=== PATIENT | male | born 1995 | race Caucasian/White ===

== ENCOUNTER 2018-11-21 14:26 | Emergency (ER) | payer OTHER ==
[2018-11-21] MEDS ORDERED: HYDROmorphONE/DILAUDID 2 MG/ML INJ IVP ONE (15:11)
[2018-11-21] MEDS ORDERED: NS 1,000 ML IV ONE (15:11)
[2018-11-21] MEDS ORDERED: ONDANSETRON 4 MG/2 ML VIAL ONE (15:13)
--- NOTE | 2018-11-21 15:18 | EDPHY ---
H & P Stated Complaint: Fall/skateboard Time Seen by Provider: 11/21/18 14:59 HPI/ROS: CHIEF COMPLAINT: Left wrist pain HISTORY OF PRESENT ILLNESS: Patient is a 23-year-old man who was riding a skateboard on a ramp. He tried did drop into the ramp and fell immediately onto his outstretched left arm. He has severe the the pain. He denies other injuries. He denies head or neck injury. Normal pulses and sensation distally. He does have a small abrasion to the distal end of his left ulna but no open laceration. Severity: Severe Modifying factors: Worsened by movement REVIEW OF SYSTEMS: Constitutional: denies: chills, fever, recent illness, recent injury EENTM: denies: blurred vision, double vision, nose congestion Respiratory: denies: cough, shortness of breath Cardiac: denies: chest pain, irregular heart rate, lightheadedness, palpitations Gastrointestinal/Abdominal: denies: abdominal pain, diarrhea, nausea, vomiting, blood streaked stools Genitourinary: denies: dysuria, frequency, hematuria, pain Musculoskeletal: See HPI Skin: See HPI Neurological: denies: headache, numbness, paresthesia, tingling, dizziness, weakness Hematologic/Lymphatic: denies: blood clots, easy bleeding, easy bruising Immunologic/allergic: denies: HIV/AIDS, transplant 10 systems reviewed and negative except as noted EXAM: GENERAL: Well-appearing, well-nourished and in no acute distress. HEAD: Atraumatic, normocephalic. EYES: Pupils equal round and reactive to light, extraocular movements intact, sclera anicteric, conjunctiva are normal. ENT: TMs normal, nares patent, oropharynx clear without exudates. Moist mucous membranes. NECK: Normal range of motion, supple without lymphadenopathy or JVD. LUNGS: Breath sounds clear to auscultation bilaterally and equal. No wheezes rales or rhonchi. HEART: Regular rate and rhythm without murmurs, rubs or gallops. ABDOMEN: Soft, nontender, normoactive bowel sounds. No guarding, no rebound. No masses appreciated. BACK: No CVA tenderness, no spinal tenderness, step-offs or deformities EXTREMITIES: Significant pain left wrist with any type of movement. Deformity. Normal capillary refill and sensation distally. NEUROLOGICAL: Cranial nerves II through XII grossly intact. Normal speech, normal gait. 5/5 strength, normal movement in all extremities, normal sensation , normal reflexes PSYCH: Normal mood, normal affect. SKIN: The abrasion distal left ulna, no the puncture Source: Patient Exam Limitations: No limitations - Personal History Current Tetanus/Diphtheria Vaccine: Yes - Medical/Surgical History Hx Asthma: No Hx Chronic Respiratory Disease: No Hx Diabetes: No Hx Cardiac Disease: No Hx Renal Disease: No Hx Cirrhosis: No Hx Alcoholism: No Other PMH: Denies - Family History Significant Family History: No pertinent family hx - Social History Smoking Status: Current some day smoker Alcohol Use: None Constitutional: Initial Vital Signs Temperature (C) 36.6 C 11/21/18 14:29 Heart Rate 98 11/21/18 14:29 Respiratory Rate 18 11/21/18 14:29 Blood Pressure 139/98 H 11/21/18 14:29 O2 Sat (%) 97 11/21/18 14:29 O2 Delivery Mode [Post Room Air Procedure 3rd] O2 Delivery Mode [Post Non-Rebreather Mask Procedure 2nd] O2 Delivery Mode [Post Non-Rebreather Mask Procedure 1st] O2 Delivery Mode [Procedural Non-Rebreather Mask 3rd] O2 Delivery Mode [Procedural Non-Rebreather Mask 2nd] O2 Delivery Mode [Procedural Non-Rebreather Mask 1st] O2 Delivery Mode [.Immediate Non-Rebreather Mask Pre-Procedure] O2 Delivery Mode Room Air O2 (L/minute) [Post Procedure 15 2nd] O2 (L/minute) [Post Procedure 15 1st] O2 (L/minute) [Procedural 3rd] 15 O2 (L/minute) [Procedural 2nd] 15 O2 (L/minute) [Procedural 1st] 15 O2 (L/minute) [.Immediate Pre- 15 Procedure] O2 (L/minute) 2 Allergies/Adverse Reactions: No Known Allergies Allergy (Unverified 11/21/18 14:35) Home Medications: Medication Instructions Recorded oxyCODONE/APAP 5/325 [Percocet 1 - 2 tab PO Q4H PRN #20 tab 11/21/18 5/325 (*)] Medical Decision Making - Diagnostics Imaging Results: Imaging Impressions Wrist X-Ray 11/21/18 00:00 Impression: There has been some improvement in the transversely-oriented displaced radial diaphyseal fracture, compared to earlier this afternoon, however there is persistent volar/radial displacement, as above-detailed. Forearm X-Ray 11/21/18 14:36 Impression: 1. Transverse displaced distal left radial fracture. Wrist X-Ray 11/21/18 14:36 Impression: Transverse displaced distal left radial fracture. Imaging: Discussed imaging studies w/ house calls nurse practitioner Radiologist Procedures: Procedure: Procedural sedation. Indication: Fracture A pre-sedation evaluation was completed on the patient just prior to the procedure. Patient is an appropriate candidate for procedural sedation with a normal 3-3-2 rule assessment and a Mallampati airway score of class 1. The risks of the sedation were discussed including but not limited to dysrhythmia, need for airway intervention or general anesthesia, disability, ; and verbal consent obtained. A timeout was observed and patient's identity confirmed. The patient was sedated with ketamine and propofol. The patient was monitored with continuous pulse oximetry, capnography, and anodiser. There were no complications and no significant hypoxemia. I remained at the bedside for the sedation. The total time I spent in the procedural sedation was 30 min Orthopedic reduction left distal radius reduced with traction and direct pressure. Tolerated the procedure well. Procedure: Splint placement. A sugar-tong splint was applied. After application of the splint I returned and re-examined the patient. The splint was adequately immobilizing the joint and distal to the splint the patient's circulation and sensation was intact. ED Course/Re-evaluation: 3:15 p.m. I spoke with Dr. Babin who will evaluate the x-rays. The patient last ate at 10:00 a.m.. He has been drinking water as recently as an hour ago . For 5:20 p.m. The patient was sedated with procedural sedation and splint placed. C-arm was used. Good alignment initially but slipped somewhat during splint placement. He is recovering will follow up with Orthopedics on Friday. 6:00 p.m. The patient is doing well. He is still having pain. Will discharge with a prescription for Percocet. He is following up on Friday with Dr. Babin. Dr. Babin has reviewed the post reduction x-rays. Differential Diagnosis: Partial list of the Differential diagnosis considered include but were not limited to; radius fracture, ulnar dislocation, Colles fracture and although unlikely based on the history and physical exam, I also considered elbow injury , head injury, neck injury. I discussed these differential diagnoses and the plan with the patient as well as the usual and expected course. The patient understands that the diagnosis is provisional and that in medicine we are not always correct and that further workup is often warranted. Usual and customary warnings were given. All of the patient's questions were answered. The patient was instructed to return to the emergency department should the symptoms at all worsen or return, otherwise to followup with the physician as we discussed. - Data Points Laboratory Results: Laboratory Results 11/21/18 15:26 11/21/18 15:26 11/21/18 11/21/18 15:26 15:26 WBC 8.77 10^3/uL 10^3/uL (3.80-9.50) RBC 5.34 10^6/uL 10^6/uL (4.40-6.38) Hgb 16.6 g/dL g/dL (13.7-17.5) Hct 48.2 % % (40.0-51.0) MCV 90.3 fL fL (81.5-99.8) MCH 31.1 pg pg (27.9-34.1) MCHC 34.4 g/dL g/dL (32.4-36.7) RDW 11.9 % % (11.5-15.2) Plt Count 258 10^3/uL 10^3/uL (150-400) MPV 10.3 fL fL (8.7-11.7) Neut % (Auto) 74.4 % H % (39.3-74.2) Lymph % (Auto) 17.9 % % (15.0-45.0) [place] % (Auto) 6.6 % % (4.5-13.0) Eos % (Auto) 0.5 % L % (0.6-7.6) Baso % (Auto) 0.3 % % (0.3-1.7) Nucleat RBC Rel Count 0.0 % % (0.0-0.2) Absolute Neuts (auto) 6.52 10^3/uL H 10^3/uL (1.70-6.50) Absolute Lymphs (auto) 1.57 10^3/uL 10^3/uL (1.00-3.00) Absolute Monos (auto) 0.58 10^3/uL 10^3/uL (0.30-0.80) Absolute Eos (auto) 0.04 10^3/uL 10^3/uL (0.03-0.40) Absolute Basos (auto) 0.03 10^3/uL 10^3/uL (0.02-0.10) Absolute Nucleated RBC 0.00 10^3/uL 10^3/uL (0-0.01) Immature Gran % 0.3 % % (0.0-1.1) Immature Gran # 0.03 10^3/uL 10^3/uL (0.00-0.10) Sodium 136 mEq/L mEq/L (135-145) Potassium 4.3 mEq/L mEq/L (3.5-5.2) Chloride 100 mEq/L mEq/L (97-110) Carbon Dioxide 24 mEq/l mEq/l (22-31) Anion Gap 12 mEq/L mEq/L (6-14) BUN 27 mg/dL H mg/dL (7-23) Creatinine 1.2 mg/dL mg/dL (0.7-1.3) Estimated GFR > 60 Glucose 110 mg/dL H mg/dL (70-100) Calcium 10.1 mg/dL mg/dL (8.5-10.4) Ethyl Alcohol < 10 mg/dL mg/dL (0-10) Medications Given: Discontinued Medications Hydromorphone HCl (Dilaudid) 1 mg IVP EDNOW ONE Stop: 11/21/18 15:12 Last Admin: 11/21/18 15:24 Dose: 1 mg Hydromorphone HCl (Dilaudid) 1 mg IVP EDNOW ONE Stop: 11/21/18 16:37 Last Admin: 11/21/18 16:49 Dose: 1 mg Sodium Chloride (Ns) 1,000 mls @ 0 mls/hr IV ONCE ONE; Wide Open PRN Reason: Protocol Stop: 11/21/18 15:12 Last Admin: 11/21/18 17:32 Dose: 1,000 mls Ketamine HCl 120 mg/ Syringe 2.4 mls @ 144 mls/hr IVP EDNOW ONE Stop: 11/21/18 17:44 Last Admin: 11/21/18 17:00 Dose: 2.4 mls Ketamine HCl (Ketamine) 120 mg IVP EDNOW ONE Stop: 11/21/18 17:01 Last Admin: 11/21/18 17:48 Dose: Not Given Oxycodone/Acetaminophen (Percocet 5/325) 2 tab PO EDNOW ONE Stop: 11/21/18 17:57 Last Admin: 11/21/18 18:00 Dose: 2 tab Propofol (Diprivan) 40 mg IVP EDNOW ONE Stop: 11/21/18 17:01 Last Admin: 11/21/18 17:00 Dose: 40 mg Departure - Departure Disposition: Home, Routine, Self-Care Clinical Impression: Radius fracture Qualifiers: Encounter type: initial encounter Radius location: shaft Fracture type: closed Fracture morphology: transverse Fracture alignment: displaced Laterality: left Qualified Code(s): S52.322A - Displaced transverse fracture of shaft of left radius, initial encounter for closed fracture Condition: Fair Instructions: Arm Fracture in Adults (ED) Additional Instructions: Follow-up with Dr. Babin on Friday. He is expecting to see you to planned surgery later this week. Referrals: NONE *PRIMARY CARE P,. [Primary Care Provider] - As per Instructions Rita Babin MD [Medical Doctor] - 1-2 days without fail Prescriptions: oxyCODONE/APAP 5/325 [Percocet 5/325 (*)] 1 - 2 tab PO Q4H PRN #20 tab PRN Reason: Pain, Severe
[2018-11-21 15:41] LABS: PLATELET COUNT 258 10^3/uL (150-400)
[2018-11-21] MEDS ORDERED: HYDROmorphONE/DILAUDID 2 MG/ML INJ ONE (16:26)
[2018-11-21] MEDS ORDERED: HYDROmorphONE/DILAUDID 1 MG/ML INJ IVP ONE (16:36)
[2018-11-21] MEDS ORDERED: KETAMINE 200 MG/20 ML VIAL ONE (16:50)
[2018-11-21] MEDS ORDERED: PROPOFOL 200 MG/20 ML VIAL ONE (16:50)
[2018-11-21] MEDS ORDERED: PROPOFOL 200 MG/20 ML VIAL IVP ONE (17:00)
[2018-11-21] MEDS ORDERED: KETAMINE 500 MG/10 ML VIAL IVP ONE (17:00)
[2018-11-21] MEDS ORDERED: KETAMINE IVP ONE (17:43)
[2018-11-21] MEDS ORDERED: OXYCODONE/APAP 5/325 TAB PO ONE (17:56)
[2018-11-21 18:39] VITALS: BP 129/74
== END 2018-11-21 18:39 | disposition home or self-care (01) ==
PROC: 0PSJXZZ Reposition Left Radius, External Approach (ICD-10-PCS; principal; 2018-11-21)
DX: S52.322A Displaced transverse fracture of shaft of left radius, initial encounter for closed fracture (principal); V00.131A Fall from skateboard, initial encounter; Y93.51 Activity, roller skating (inline) and skateboarding
CPT/HCPCS: 96374; A4565; G0480; J1170; J2405; J2704